=== PATIENT | male | born 1970 | race Hispanic/Latino ===

== ENCOUNTER 2018-07-20 00:33 | Emergency (ER) | payer SELFPAY ==
[2018-07-20 00:45] VITALS: BP 142/93
--- NOTE | 2018-07-20 03:12 | Emergency Department Report ---
- General Chief Complaint: Upper Respiratory Infection Stated Complaint: COLD SX Time Seen by Provider: 07/20/18 02:33 Source: patient Mode of arrival: Ambulatory Limitations: No Limitations - History of Present Illness Initial Comments: 40-year-old male with past medical history is positive emergency department complaining of lack of energy and nasal congestion which got worse yesterday. No fever, chills, sweats. No diarrhea but has had some nausea. Denies any chest pain or PALPITATIONS. MD Complaint: cough, rhinorrhea, nasal congestion Severity: moderate Quality: dull Consistency: constant Improves With: nothing Worsens With: nothing Associated Symptoms: fever (feverish), chills, rhinorrhea, nasal congestion, cough, nausea. denies: diaphoresis, headache, vomiting, diarrhea, confusion, weight loss, epistaxis, hoarseness - Related Data Previous Rx's Medication Instructions Recorded Last Taken Type ALBUTEROL Inhaler (OR & NICU) 1 puff IH Q4-6H PRN #1 inha 07/20/18 Unknown Rx [ProAir HFA Inhaler] Amoxicillin 500 mg PO QID #40 capsule 07/20/18 Unknown Rx Benzonatate [Tessalon Perle] 100 mg PO BID #20 capsule 07/20/18 Unknown Rx Allergies Allergy/AdvReac Type Severity Reaction Status Date / Time oxycodone Allergy Vomiting Verified 07/20/18 00:45 ED Review of Systems ROS: Stated complaint: COLD SX Other details as noted in HPI Constitutional: denies: chills, fever Eyes: denies: eye pain, eye discharge, vision change ENT: denies: ear pain, throat pain Respiratory: cough. denies: shortness of breath, wheezing Cardiovascular: denies: chest pain, palpitations Endocrine: no symptoms reported Gastrointestinal: denies: abdominal pain, nausea, diarrhea Genitourinary: denies: urgency, dysuria Musculoskeletal: denies: back pain, joint swelling, arthralgia Skin: denies: rash, lesions Neurological: denies: headache, weakness, paresthesias Psychiatric: denies: anxiety, depression Hematological/Lymphatic: denies: easy bleeding, easy bruising ED Past Medical Hx - Past Medical History Previous Medical History?: Yes Additional medical history: cerbal palsey - Surgical History Past Surgical History?: Yes Additional Surgical History: right ankle - Social History Smoking Status: Never Smoker Substance Use Type: Alcohol - Medications Home Medications: Home Medications Medication Instructions Recorded Confirmed Last Taken Type ALBUTEROL Inhaler (OR & NICU) 1 puff IH Q4-6H PRN #1 inha 07/20/18 Unknown Rx [ProAir HFA Inhaler] Amoxicillin 500 mg PO QID #40 capsule 07/20/18 Unknown Rx Benzonatate [Tessalon Perle] 100 mg PO BID #20 capsule 07/20/18 Unknown Rx ED Physical Exam - General Limitations: No Limitations General appearance: alert, in no apparent distress - Head Head exam: Present: atraumatic, normocephalic - Eye Eye exam: Present: normal appearance, PERRL, EOMI - ENT ENT exam: Present: normal exam, mucous membranes moist, TM's normal bilaterally, other (nasal congestion bilaterally) - Neck Neck exam: Present: normal inspection, full ROM - Respiratory Respiratory exam: Present: normal lung sounds bilaterally. Absent: respiratory distress, wheezes, rales, rhonchi, chest wall tenderness, accessory muscle use, decreased breath sounds - Cardiovascular Cardiovascular Exam: Present: regular rate, normal rhythm. Absent: systolic murmur, diastolic murmur, rubs, gallop - GI/Abdominal GI/Abdominal exam: Present: soft, normal bowel sounds. Absent: distended, rebound, hyperactive bowel sounds, hypoactive bowel sounds, organomegaly, bruit - Rectal Rectal exam: Present: deferred - exam: Present: normal inspection - Extremities Exam Extremities exam: Present: normal inspection. Absent: normal capillary refill, pedal edema - Back Exam Back exam: Present: normal inspection - Neurological Exam Neurological exam: Present: alert, oriented X3 - Psychiatric Psychiatric exam: Present: normal affect, normal mood - Skin Skin exam: Present: warm, dry, intact, normal color. Absent: rash ED Course Vital Signs 07/20/18 07/20/18 00:40 00:41 Temperature 98.4 F 98.4 F Pulse Rate 109 H 111 H Respiratory 18 18 Rate Blood Pressure 142/93 142/93 O2 Sat by Pulse 98 99 Oximetry Critical care attestation.: If time is entered above; I have spent that time in minutes in the direct care of this critically ill patient, excluding procedure time. ED Disposition Clinical Impression: Cough Disposition: DC-01 TO HOME OR SELFCARE Is pt being admited?: No Does the pt Need Aspirin: No Condition: Stable Instructions: Cold Symptoms (ED) Referrals: PRIMARY CARE, [Primary Care Provider] - 3-5 Days [facility] [Provider Group] - 3-5 Days
== END 2018-07-20 03:55 | disposition home or self-care (01) ==
LOC: ED 00:33
DX: R05 Cough (principal); R09.81 Nasal congestion; G80.9 Cerebral palsy, unspecified; Z88.5 Allergy status to narcotic agent
CPT/HCPCS: 99282